=== PATIENT | female | born 1995 | race African-American/Black ===

== ENCOUNTER 2020-09-28 17:04 | Emergency (ER) | payer SELFPAY ==
--- NOTE | 2020-09-28 18:01 | EDM.PDOC ---
ED HPI GENERAL MEDICAL PROBLEM - General Chief Complaint: Lower Extremity Injury/Pain Stated Complaint: LEFT ANKLE SWOLLEN Time Seen by Provider: 09/28/20 17:14 Source of Information: Reports: Patient History Limitations: Reports: No Limitations - History of Present Illness INITIAL COMMENTS - FREE TEXT/NARRATIVE: The patient presents with left ankle pain. She was going up some steps early this morning and tripped and hurt her left ankle. She did not hit her head or hurt her neck. She has no chest pain or shortness of breath. She has left ankle pain. She can put a little weight on it. Onset: Sudden Duration: Hour(s): (early this morning) Location: Reports: Lower Extremity, Left (ankle) Quality: Reports: Sharp Severity: Moderate Improves with: Reports: Immobilization Worsens with: Reports: Movement Associated Symptoms: Reports: No Other Symptoms Left Pain Score (Numeric/FACES): 7 - Related Data Allergies Allergy/AdvReac Type Severity Reaction Status Date / Time No Known Allergies Allergy Verified 09/28/20 17:14 Home Meds: Home Meds Hydrocodone/Acetaminophen [Hydrocodone-Acetamin 5-325 mg] 1 - 2 each PO Q6HR PRN #10 tablet 09/28/20 [Rx] Past Medical History Respiratory History: Reports: Bronchitis, Recurrent Psychiatric History: Reports: Depression Hematologic History: Reports: Anemia - Infectious Disease History Infectious Disease History: Reports: Chicken Pox, Novel Coronavirus Social & Family History - Tobacco Use Tobacco Use Status *Q: Current Every Day Tobacco User Years of Tobacco use: 12 Packs/Tins Daily: 0.5 - Caffeine Use Caffeine Use: Reports: Energy Drinks, Tea - Recreational Drug Use Recreational Drug Use: Yes Recreational Drug Type: Reports: Marijuana/Hashish Review of Systems - Review of Systems Review Of Systems: See Below Constitutional: Reports: No Symptoms Eyes: Reports: No Symptoms Ears: Reports: No Symptoms Nose: Reports: No Symptoms Mouth/Throat: Reports: No Symptoms Respiratory: Reports: No Symptoms Cardiovascular: Reports: No Symptoms GI/Abdominal: Reports: No Symptoms Genitourinary: Reports: No Symptoms ED EXAM, GENERAL - Physical Exam Exam: See Below Exam Limited By: No Limitations General Appearance: Alert, No Apparent Distress Ears: Normal External Exam Nose: Normal Inspection Head: Atraumatic, Normocephalic Neck: Normal Inspection Respiratory/Chest: No Respiratory Distress Extremities: Other (Pain upon palpation with edema to the left ankle. Good sensation and capillary refill distally.) Course - Vital Signs Last Recorded V/S: Last Vital Signs Temp 98.7 F 09/28/20 17:15 Pulse 70 09/28/20 17:15 Resp 16 09/28/20 17:15 BP 129/76 09/28/20 17:15 Pulse Ox 97 09/28/20 17:15 - Orders/Labs/Meds Orders: Active Orders 24 hr Category Date Time Status Ankle Min 3V Lt [CR] Stat Exams 09/28/20 17:32 Ordered - Re-Assessments/Exams Free Text/Narrative Re-Assessment/Exam: 09/28/20 18:02 I have ordered an x-ray of her ankle. 09/28/20 18:25 The x-ray of her ankle looks good. I will give her a walking boot and have her follow up with Dr Leo is she is not better in about a week. Departure - Departure Time of Disposition: 18:25 Disposition: Home, Self-Care 01 Condition: Good Clinical Impression: Left ankle sprain Qualifiers: Encounter type: initial encounter Involved ligament of ankle: unspecified ligament Qualified Code(s): S93.402A - Sprain of unspecified ligament of left ankle, initial encounter - Discharge Information *PRESCRIPTION DRUG MONITORING PROGRAM REVIEWED*: Not Applicable *COPY OF PRESCRIPTION DRUG MONITORING REPORT IN PATIENT DAMIAN: Not Applicable Prescriptions: Hydrocodone/Acetaminophen [Hydrocodone-Acetamin 5-325 mg] 1 - 2 each PO Q6HR PRN #10 tablet PRN Reason: Pain Referrals: PCP,None [Primary Care Provider] - Eleanor Leo MD [Physician] - 1 Week Forms: ED Department Discharge Additional Instructions: Ice your ankle for 15 minutes 3 times per day for a couple days. Try to elevate your ankle as much as you can for 2 days. Take tylenol or motrin as needed for pain. If that does not help, try the hydrocodone. Wear the walking boot for comfort and use the crutches as needed. Follow up with Dr Leo within a week if you are not better. Sepsis Event Note (ED) - Evaluation Sepsis Screening Result: No Definite Risk - Focused Exam Vital Signs: Vital Signs Temp Pulse Resp BP Pulse Ox 09/28/20 17:15 98.7 F 70 16 129/76 97 - My Orders Last 24 Hours: My Active Orders 09/28/20 17:32 Ankle Min 3V Lt [CR] Stat - Assessment/Plan Last 24 Hours: My Active Orders 09/28/20 17:32 Ankle Min 3V Lt [CR] Stat
--- NOTE | 2020-09-28 19:18 | CR ---
Left ankle: 4 views of the left ankle were obtained. Comparison: No prior study. No calcaneal spurs are seen. Ankle mortise is symmetric. Mild soft tissue swelling is noted. No acute fracture, dislocation or other bony abnormality is appreciated. Impression: 1. Soft tissue swelling. 2. No acute osseous abnormality is appreciated on left ankle exam. Diagnostic code #2
== END 2020-09-28 18:12 | disposition home or self-care (01) ==
LOC: JD.ED 17:04 → EDSEX 17:04 → JD.ED 18:12
DX: S93.402A Sprain of unspecified ligament of left ankle, initial encounter (principal); Z72.0 Tobacco use; W10.9XXA Fall (on) (from) unspecified stairs and steps, initial encounter
CPT/HCPCS: 73610-26-LT; 73610-LT; 99283; 99283-25

== ENCOUNTER 2020-10-14 08:05 | Emergency (ER) | payer SELFPAY ==
[2020-10-14] MEDS ORDERED: Codeine/Promethazine 10-6.25 MG/5 ML Syrup 5 ML UD Cup PO ONE (08:28)
--- NOTE | 2020-10-14 08:35 | EDM.PDOC ---
ED HPI GENERAL MEDICAL PROBLEM - General Chief Complaint: Respiratory Problem Stated Complaint: SINUS/RESPIRATORY ISSUES Time Seen by Provider: 10/14/20 08:21 Source of Information: Reports: Patient History Limitations: Reports: No Limitations - History of Present Illness INITIAL COMMENTS - FREE TEXT/NARRATIVE: The patient presents with congestion and sinus pressure. This has been going on for a couple of days. She has no fever or chills. She has a headache. She cannot even blow her nose she is so congestion. She has a cough. She has no chest pain or shortness of breath. She has no medical problems. Onset: Gradual Duration: Day(s): Location: Reports: Head, Face Quality: Reports: Ache Severity: Moderate Improves with: Reports: None Worsens with: Reports: None Associated Symptoms: Reports: Cough, Headaches. Denies: Chest Pain, Fever/Chills, Nausea/Vomiting, Shortness of Breath Headache Pain Score (Numeric/FACES): 8 - Related Data Allergies Allergy/AdvReac Type Severity Reaction Status Date / Time No Known Allergies Allergy Verified 10/14/20 08:12 Home Meds: Home Meds Amoxicillin 875 mg PO BID #20 tab 10/14/20 [Rx] Codeine/Promethazine [Phenergan with Codeine] 5 - 10 ml PO Q6HR PRN #300 ml 10/14/20 [Rx] Loratadine/Pseudoephedrine [Claritin-D 24 Hour Tablet] 1 each PO DAILY #14 tab.er.24h 10/14/20 [Rx] Past Medical History Respiratory History: Reports: Bronchitis, Recurrent Psychiatric History: Reports: Depression Hematologic History: Reports: Anemia - Infectious Disease History Infectious Disease History: Reports: Chicken Pox, Novel Coronavirus Social & Family History - Tobacco Use Tobacco Use Status *Q: Never Tobacco User Second Hand Smoke Exposure: No - Caffeine Use Caffeine Use: Reports: None - Recreational Drug Use Recreational Drug Use: No ED ROS GENERAL - Review of Systems Review Of Systems: See Below Constitutional: Reports: No Symptoms HEENT: Reports: Sinus Problem Respiratory: Reports: Cough. Denies: Shortness of Breath Cardiovascular: Reports: No Symptoms Endocrine: Reports: No Symptoms GI/Abdominal: Reports: No Symptoms : Reports: No Symptoms Musculoskeletal: Reports: No Symptoms ED EXAM, GENERAL - Physical Exam Exam: See Below Exam Limited By: No Limitations General Appearance: Alert, No Apparent Distress Ears: Normal External Exam, Normal Canal, Normal TMs Nose: Normal Inspection Throat/Mouth: Normal Inspection Head: Atraumatic, Normocephalic, Other (Tenderness to the frontal and maxillary sinus with palpation) Neck: Normal Inspection, Supple, Non-Tender Respiratory/Chest: No Respiratory Distress, Lungs Clear, Normal Breath Sounds Cardiovascular: Regular Rate, Rhythm, No Edema, No Murmur GI/Abdominal: Soft, Non-Tender, No Organomegaly, No Mass Back Exam: Normal Inspection Extremities: Normal Inspection Neurological: Alert, Oriented, No Motor/Sensory Deficits Course - Vital Signs Last Recorded V/S: Last Vital Signs Temp 97.1 F 10/14/20 08:12 Pulse 62 10/14/20 08:12 Resp 13 10/14/20 08:12 BP 136/81 10/14/20 08:12 Pulse Ox 100 10/14/20 08:12 - Orders/Labs/Meds Orders: Active Orders 24 hr Category Date Time Status Codeine/Promethazine [Phenergan with Codeine] Med 10/14/20 08:28 Once 10 ml PO ONETIME ONE - Re-Assessments/Exams Free Text/Narrative Re-Assessment/Exam: 10/14/20 08:32 I ordered some phenergan with codeine here and I will give her a prescription for amoxicillin, claritin D 24 hour and more phenergan with codeine. Departure - Departure Time of Disposition: 08:35 Disposition: Home, Self-Care 01 Condition: Good Clinical Impression: Sinusitis Qualifiers: Sinusitis location: frontal Chronicity: acute Recurrence: non-recurrent Qualified Code(s): J01.10 - Acute frontal sinusitis, unspecified - Discharge Information Prescriptions: Amoxicillin 875 mg PO BID #20 tab Loratadine/Pseudoephedrine [Claritin-D 24 Hour Tablet] 1 each PO DAILY #14 tab.er.24h Codeine/Promethazine [Phenergan with Codeine] 5 - 10 ml PO Q6HR PRN #300 ml PRN Reason: Cough Referrals: PCP,None [Primary Care Provider] - Zoraida Hamilton NP [Nurse Practitioner] - 1 Week Additional Instructions: Take the amoxicillin 2 times per day for 10 days. Take the claritin D 24 hours daily for 2 weeks. Take the phenergan with codeine every 6 hours as needed for cough or pain. 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 Follow up with Zoraida Hamilton in our clinic next week. Please return if you are worse. Sepsis Event Note (ED) - Evaluation Sepsis Screening Result: No Definite Risk - Focused Exam Vital Signs: Vital Signs Temp Pulse Resp BP Pulse Ox 10/14/20 08:12 97.1 F 62 13 136/81 100 - My Orders Last 24 Hours: My Active Orders 10/14/20 08:28 Codeine/Promethazine [Phenergan with Codeine] 10 ml PO ONETIME ONE - Assessment/Plan Last 24 Hours: My Active Orders 10/14/20 08:28 Codeine/Promethazine [Phenergan with Codeine] 10 ml PO ONETIME ONE
== END 2020-10-14 08:52 | disposition home or self-care (01) ==
LOC: JD.ED 08:05
DX: J01.10 Acute frontal sinusitis, unspecified (principal)
CPT/HCPCS: 99283; A9270

== ENCOUNTER 2021-01-30 19:22 | Emergency (ER) | payer SELFPAY ==
--- NOTE | 2021-01-30 20:30 | EDM.PDOC ---
ED HPI GENERAL MEDICAL PROBLEM - General Chief Complaint: Respiratory Problem Stated Complaint: WANTS TO BE TESTED FOR COVID-VOMITING MUCUS Time Seen by Provider: 01/30/21 19:58 Source of Information: Reports: Patient, RN Notes Reviewed History Limitations: Reports: No Limitations - History of Present Illness INITIAL COMMENTS - FREE TEXT/NARRATIVE: Patient is a 25-year-old female presenting to the emergency department with complaints of cough, congestion, body aches, and headache. She is requesting to be tested for Covid. She is had no known contacts of Covid. Denies any nausea or diarrhea but states that she has vomited mucus a couple times after having a coughing fit. Denies any significant shortness of breath. She has no chronic medical conditions. She did not receive the Covid vaccinations. Generalized Pain Score (Numeric/FACES): 5 - Related Data Allergies Allergy/AdvReac Type Severity Reaction Status Date / Time No Known Allergies Allergy Verified 10/14/20 08:12 Home Meds: Home Meds . [No Known Home Meds] 01/30/21 [History] Past Medical History - Past Health History Medical/Surgical History: Denies Medical/Surgical History Respiratory History: Reports: Bronchitis, Recurrent Psychiatric History: Reports: Depression Hematologic History: Reports: Anemia - Infectious Disease History Infectious Disease History: Reports: Chicken Pox, Novel Coronavirus Social & Family History - Tobacco Use Tobacco Use Status *Q: Current Every Day Tobacco User Years of Tobacco use: 10 Packs/Tins Daily: 0.5 - Caffeine Use Caffeine Use: Reports: Tea - Recreational Drug Use Recreational Drug Use: Yes Drug Use in Last 12 Months: Yes Recreational Drug Type: Reports: Marijuana/Hashish Recreational Drug Use Frequency: Daily ED ROS GENERAL - Review of Systems Review Of Systems: See Below Constitutional: Reports: Fatigue. Denies: Fever HEENT: Reports: Rhinitis Respiratory: Reports: Cough. Denies: Shortness of Breath Cardiovascular: Reports: No Symptoms Endocrine: Reports: No Symptoms GI/Abdominal: Reports: Vomiting. Denies: Nausea : Reports: No Symptoms Musculoskeletal: Reports: Other (Generalized body aches) Skin: Reports: No Symptoms Neurological: Reports: Headache Psychiatric: Reports: No Symptoms Hematologic/Lymphatic: Reports: No Symptoms Immunologic: Reports: No Symptoms ED EXAM, GENERAL - Physical Exam Exam: See Below Exam Limited By: No Limitations General Appearance: Alert, WD/WN, No Apparent Distress Nose: Nasal Drainage, Clear Rhinorrhea Respiratory/Chest: No Respiratory Distress, Lungs Clear, Normal Breath Sounds, No Accessory Muscle Use, Chest Non-Tender Cardiovascular: Normal Peripheral Pulses, Regular Rate, Rhythm, No Edema, No Gallop, No JVD, No Murmur, No Rub GI/Abdominal: Normal Bowel Sounds, Soft, Non-Tender, No Organomegaly, No Distention, No Abnormal Bruit, No Mass Neurological: Alert, Oriented, CN II-XII Intact, Normal Cognition, Normal Gait, Normal Reflexes, No Motor/Sensory Deficits Psychiatric: Normal Affect, Normal Mood Skin Exam: Warm, Dry, Intact, Normal Color, No Rash Course - Vital Signs Last Recorded V/S: Last Vital Signs Temp 97.7 F 01/30/21 20:00 Pulse 50 L 01/30/21 20:00 Resp 20 01/30/21 20:00 BP 154/90 H 01/30/21 20:00 Pulse Ox 100 01/30/21 20:00 - Orders/Labs/Meds Orders: Active Orders 24 hr Category Date Time Status Chest 1V Frontal [CR] Stat Exams 01/30/21 20:29 Ordered Labs: Laboratory Tests 01/30/21 Range/Units 20:30 SARS-CoV-2 RNA ([facility]) Negative (NEGATIVE) - Re-Assessments/Exams Free Text/Narrative Re-Assessment/Exam: Patient is a 25-year-old female presenting to the emergency department with complaints of left, congestion, headache, and body aches. Symptoms began approximately 5 days ago. Denies any significant shortness of breath. She has no underlying medical conditions. Exam is overall unremarkable. Lung sounds are clear. She does have notable sinus congestion. I have ordered Covid test and chest x-ray. 01/30/21 21:30 Covid test was negative. Chest x-ray shows no evidence of pneumonia. Patient is suffering from a viral respiratory infection. Recommend symptomatic treatment. Discharge instructions as documented. Departure - Departure Time of Disposition: 21:30 Disposition: Home, Self-Care 01 Condition: Good Clinical Impression: Viral respiratory infection - Discharge Information *PRESCRIPTION DRUG MONITORING PROGRAM REVIEWED*: No *COPY OF PRESCRIPTION DRUG MONITORING REPORT IN PATIENT DAMIAN: No Instructions: Viral Illness, Adult Referrals: PCP,None [Primary Care Provider] - Forms: ED Department Discharge Additional Instructions: You were seen in the emergency department today for sinus congestion, cough, headaches, and body aches. Chest x-ray was completed and found to be normal. You were tested for Covid and it is negative. You are suffering from a viral respiratory infection. Recommend [id number] Flonase nasal spray as needed for congestion as well as intermittent Tylenol and ibuprofen for discomfort. If you should experience any new or worsening symptoms, please do not hesitate to return to the emergency department for reevaluation. Sepsis Event Note (ED) - Evaluation Sepsis Screening Result: No Definite Risk - Focused Exam Vital Signs: Vital Signs Temp Pulse Resp BP Pulse Ox 01/30/21 20:00 97.7 F 50 L 20 154/90 H 100 - My Orders Last 24 Hours: My Active Orders 01/30/21 20:29 Chest 1V Frontal [CR] Stat - Assessment/Plan Last 24 Hours: My Active Orders 01/30/21 20:29 Chest 1V Frontal [CR] Stat
--- NOTE | 2021-01-31 08:37 | CR ---
Chest: Portable view of the chest was obtained. Comparison: No prior chest imaging is available. Heart size and mediastinum are within normal limits. Lungs are clear with no acute parenchymal change. No acute osseous abnormality is appreciated. Impression: 1. Nothing acute is appreciated on portable chest x-ray. Diagnostic code #1
== END 2021-01-30 21:40 | disposition home or self-care (01) ==
LOC: JD.ED 19:22
DX: J98.8 Other specified respiratory disorders (principal); Z72.0 Tobacco use; Z20.822 Contact with and (suspected) exposure to COVID-19
CPT/HCPCS: 71045; 71045-26; 99283; 99284-25; U0002

== ENCOUNTER 2021-02-18 20:18 | Emergency (ER) | payer OTHER ==
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
[2021-02-18] MEDS ORDERED: Ibuprofen 800 MG Tab PO ONE (23:24)
--- NOTE | 2021-02-19 08:23 | CR ---
Left shoulder: 3 views of the left shoulder were obtained. Comparison: No prior shoulder study is available. Acromioclavicular joint and glenohumeral joint appear within normal limits. No acute fracture, dislocation or other bony abnormality is appreciated. No abnormal soft tissue calcifications are seen. Impression: 1. Nothing acute is seen on 3 view left shoulder study. Diagnostic code #1
--- NOTE | 2021-02-19 08:24 | CT ---
CT cervical spine Technique: Multiple axial sections were obtained from above C1 inferiorly through the T5 level. Reconstructed coronal and sagittal images were obtained. Comparison: No prior cervical spine imaging is available. Findings: Mild artifact is noted at the cervicothoracic junction compatible with body habitus. Other vertebral body heights and disc spaces are maintained. No bony central or bony neural foraminal stenosis is seen. No discrete fracture or subluxation is appreciated. Impression: 1. Slightly limited visualization at the cervicothoracic junction due to body habitus. 2. Nothing acute is definitely appreciated on CT study of the cervical spine. Diagnostic code #1 I agree with preliminary report from [facility], finalized on 02/19/21, 12:50 AM CDT, code 1
--- NOTE | 2021-02-19 08:39 | CT ---
Head CT Technique: Multiple axial sections through the brain were obtained. Intravenous contrast was not utilized. Reconstructed coronal and sagittal images were obtained. Comparison: No prior intracranial imaging is available. Findings: Ventricles along with basal cisterns and sulci over the convexities are within normal limits for the patient's age. No abnormal parenchymal densities are seen. No evidence of intracranial hemorrhage is seen. No midline shift or mass-effect is seen. Mild mucosal thickening is seen within both maxillary sinuses. Minimal mucosal thickening is seen within the ethmoid sinuses. Visualized mastoid sinuses are clear. No acute calvarial finding is seen. Impression: 1. Minimal sinus findings which are likely due to minimal chronic sinusitis. 2. No acute intracranial abnormality is appreciated. Diagnostic code #2 I agree with preliminary report from [facility], finalized on 02/18/21, 10:33 PM CDT, code 1
== END 2021-02-19 00:03 | disposition home or self-care (01) ==
LOC: JD.ED 20:18
DX: S71.112A Laceration without foreign body, left thigh, initial encounter (principal); S31.821A Laceration without foreign body of left buttock, initial encounter; S00.03XA Contusion of scalp, initial encounter; E66.9 Obesity, unspecified; Z68.30 Body mass index [BMI] 30.0-30.9, adult; Z72.0 Tobacco use; V49.10XA Passenger injured in collision with unspecified motor vehicles in nontraffic accident, initial encounter; Y92.410 Unspecified street and highway as the place of occurrence of the external cause
CPT/HCPCS: 70450; 72125; 73030; 99284; A9270; 99283

== ENCOUNTER 2021-03-30 15:24 | Emergency (ER) | payer SELFPAY ==
--- NOTE | 2021-03-30 17:09 | EDM.PDOC ---
ED HPI GENERAL MEDICAL PROBLEM - General Chief Complaint: Respiratory Problem Stated Complaint: CHEST PAIN X 2 DAYS Time Seen by Provider: 03/30/21 15:57 Source of Information: Reports: Patient, RN Notes Reviewed History Limitations: Reports: No Limitations - History of Present Illness INITIAL COMMENTS - FREE TEXT/NARRATIVE: Patient is a 26-year-old female presenting to the emergency department with complaints of cough, sinus congestion, and chest tightness for the last 3 days. Patient reports that her cough is sometimes dry and sometimes productive. Complains of burning in her chest with taking a deep breath. She is had no fever, chills, nausea, vomiting, or diarrhea. She did not receive Covid vaccinations. Chest Pain Score (Numeric/FACES): 5 - Related Data Allergies Allergy/AdvReac Type Severity Reaction Status Date / Time No Known Allergies Allergy Verified 03/30/21 15:50 Home Meds: Home Meds methylPREDNISolone [Medrol Dose Pack] 4 mg PO ASDIRECTED #1 dospk 03/30/21 [Rx] Past Medical History - Past Health History Medical/Surgical History: Denies Medical/Surgical History Respiratory History: Reports: Bronchitis, Recurrent Psychiatric History: Reports: Bipolar, Depression, PTSD Endocrine/Metabolic History: Reports: Obesity/BMI 30+ Hematologic History: Reports: Anemia - Infectious Disease History Infectious Disease History: Reports: Chicken Pox Social & Family History - Tobacco Use Tobacco Use Status *Q: Current Every Day Tobacco User Years of Tobacco use: 9 Packs/Tins Daily: 1 - Caffeine Use Caffeine Use: Reports: None - Recreational Drug Use Recreational Drug Use: Yes Recreational Drug Type: Reports: Marijuana/Hashish - Living Situation & Occupation Living situation: Reports: Single Occupation: Employed (Works at [employer]) ED ROS GENERAL - Review of Systems Review Of Systems: See Below Constitutional: Reports: No Symptoms, Weight Gain. Denies: Fever, Chills HEENT: Reports: Sinus Problem (Congestion) Respiratory: Reports: Pleuritic Chest Pain, Cough. Denies: Shortness of Breath, Wheezing Cardiovascular: Reports: No Symptoms Endocrine: Reports: No Symptoms GI/Abdominal: Reports: No Symptoms : Reports: No Symptoms Musculoskeletal: Reports: No Symptoms Skin: Reports: No Symptoms Neurological: Reports: No Symptoms Psychiatric: Reports: No Symptoms Hematologic/Lymphatic: Reports: No Symptoms Immunologic: Reports: No Symptoms ED EXAM, GENERAL - Physical Exam Exam: See Below Exam Limited By: No Limitations General Appearance: Alert, WD/WN, No Apparent Distress Respiratory/Chest: No Respiratory Distress, Lungs Clear, Normal Breath Sounds, No Accessory Muscle Use, Chest Non-Tender Cardiovascular: Normal Peripheral Pulses, Regular Rate, Rhythm, No Edema, No Gallop, No JVD, No Murmur, No Rub Neurological: Alert, Oriented, CN II-XII Intact, Normal Cognition, Normal Gait, Normal Reflexes, No Motor/Sensory Deficits Psychiatric: Normal Affect, Normal Mood Skin Exam: Warm, Dry, Intact, Normal Color, No Rash Course - Vital Signs Last Recorded V/S: Last Vital Signs Temp 97.0 F 03/30/21 15:48 Pulse 85 03/30/21 15:48 Resp 20 03/30/21 15:48 BP 149/80 H 03/30/21 15:48 Pulse Ox 99 03/30/21 15:48 - Orders/Labs/Meds Orders: Active Orders 24 hr Category Date Time Status Chest 1V Frontal [CR] Stat Exams 03/30/21 16:10 Taken Labs: Laboratory Tests 03/30/21 Range/Units 15:55 SARS-CoV-2 RNA ([place]) Negative (NEGATIVE) - Re-Assessments/Exams Free Text/Narrative Re-Assessment/Exam: Patient is a 26-year-old female presenting to the emergency department with complaints of cough, sinus congestion, chest tightness for last 3 days. Exam is unremarkable. Lung sounds are clear. I ordered chest x-ray and Covid test. 03/30/21 17:10 Chest x-ray shows no acute abnormalities. Covid test is negative. We will discharge her home with a Medrol Dosepak for bronchitis. Also provide her a note for work. Departure - Departure Time of Disposition: 17:11 Disposition: Home, Self-Care 01 Condition: Good Clinical Impression: Viral respiratory infection - Discharge Information *PRESCRIPTION DRUG MONITORING PROGRAM REVIEWED*: No *COPY OF PRESCRIPTION DRUG MONITORING REPORT IN PATIENT DAMIAN: No Prescriptions: methylPREDNISolone [Medrol Dose Pack] 4 mg PO ASDIRECTED #1 dospk Instructions: Acute Bronchitis, Adult, [id number] Referrals: PCP,None [Primary Care Provider] - Forms: ED Department Discharge, ED Return to Work/School Form Additional Instructions: You were seen in the emergency department today for evaluation of cough, chest tightness, and sinus congestion. Work-up included chest x-ray and Covid test. Results of your work-up on to be normal. Do not Covid and he do not have pneumonia. You been started on Medrol Dosepak for treatment of bronchitis. Take this medication as prescribed. If you should experience any new or w orsening symptoms, please not hesitate to return to the emergency department for reevaluation. Sepsis Event Note (ED) - Focused Exam Vital Signs: Vital Signs Temp Pulse Resp BP Pulse Ox 03/30/21 15:48 97.0 F 85 20 149/80 H 99 - My Orders Last 24 Hours: My Active Orders 03/30/21 16:10 Chest 1V Frontal [CR] Stat - Assessment/Plan Last 24 Hours: My Active Orders 03/30/21 16:10 Chest 1V Frontal [CR] Stat
--- NOTE | 2021-03-31 07:21 | CR ---
Chest: Portable view of the chest was obtained. Comparison: Prior chest x-ray of 01/30/21. Heart size and mediastinum are within normal limits. Lungs are clear with no acute parenchymal change. Bony structures show nothing acute. Impression: 1. Nothing acute is seen on portable chest x-ray. 2. No change is seen from previous chest x-ray. Diagnostic code #1
== END 2021-03-30 17:35 | disposition home or self-care (01) ==
LOC: JD.ED 15:24
DX: J98.9 Respiratory disorder, unspecified (principal); E66.9 Obesity, unspecified; Z68.41 Body mass index [BMI] 40.0-44.9, adult; Z72.0 Tobacco use; Z20.822 Contact with and (suspected) exposure to COVID-19
CPT/HCPCS: 71045; 71045-26; 99284-25; U0002

== ENCOUNTER 2021-09-17 14:30 | Emergency (ER) | payer SELFPAY ==
[2021-09-17] MEDS ORDERED: Acetaminophen/oxyCODONE 325-5 MG Tab PO ONE (15:47)
[2021-09-17] MEDS ORDERED: Ondansetron 4 MG Tab.DIS PO ONE (15:48)
== END 2021-09-17 16:51 | disposition home or self-care (01) ==
LOC: JD.ED 14:30
DX: S30.0XXA Contusion of lower back and pelvis, initial encounter (principal); E66.9 Obesity, unspecified; Z68.41 Body mass index [BMI] 40.0-44.9, adult; W01.0XXA Fall on same level from slipping, tripping and stumbling without subsequent striking against object, initial encounter
CPT/HCPCS: 72131; 99283; A9270; 99284

== ENCOUNTER 2021-10-08 13:35 | Emergency (ER) | payer SELFPAY ==
[2021-10-08] MEDS ORDERED: Ketorolac 60 MG/2 ML SDV IM ONE (14:07)
== END 2021-10-08 15:06 | disposition home or self-care (01) ==
LOC: JD.ED 13:35
DX: M54.6 Pain in thoracic spine (principal); E66.9 Obesity, unspecified; Z68.41 Body mass index [BMI] 40.0-44.9, adult
CPT/HCPCS: 72072; 96372; 99283; J1885; 99284

== ENCOUNTER 2022-03-06 12:58 | Emergency (ER) | payer SELFPAY ==
[2022-03-06] MEDS ORDERED: Sodium Chloride 0.9% 10 ML Syringe FLUSH PRN (13:40)
[2022-03-06] MEDS: Ondansetron 4 MG/2 ML SDV IVPUSH ONE (14:07)
[2022-03-06] MEDS: Sodium Chloride 0.9% 1,000 ML IV STA (14:07)
[2022-03-06] MEDS: HYDROmorphone 1 MG/ML Syringe IVPUSH ONE (14:08)
[2022-03-06] MEDS: Sodium Chloride 0.9% 10 ML Syringe FLUSH PRN (14:54)
[2022-03-06] MEDS: Iopamidol 612 MG/ML 50 ML SDV IVPUSH ONE (14:54)
[2022-03-06] MEDS: Iopamidol 612 MG/ML 100 ML Bottle IVPUSH ONE (14:54)
[2022-03-06] MEDS: Pantoprazole 40 MG Vial IVPUSH ONE (16:30)
[2022-03-06] MEDS: Pantoprazole 40 MG Vial ONE (16:31)
== END 2022-03-06 17:08 | disposition home or self-care (01) ==
LOC: JD.ED 12:58
DX: K59.01 Slow transit constipation (principal); K25.0 Acute gastric ulcer with hemorrhage; E66.9 Obesity, unspecified; Z68.42 Body mass index [BMI] 45.0-49.9, adult; Z79.899 Other long term (current) drug therapy
CPT/HCPCS: 36415; 74177; 80053; 81001; 83690; 84703; 85025; 96361; 96374; 96375; 99284; C9113; J1170; J2405; J3490; J7030; Q9967

== ENCOUNTER 2022-05-28 13:57 | Emergency (ER) | payer SELFPAY | END 2022-05-28 16:19 | disposition home or self-care (01) | LOC: JD.ED 13:57 | DX: S06.0X0A Concussion without loss of consciousness, initial encounter (principal); E66.9 Obesity, unspecified; Z68.42 Body mass index [BMI] 45.0-49.9, adult; Z72.0 Tobacco use; Y04.0XXA Assault by unarmed brawl or fight, initial encounter; Y92.009 Unspecified place in unspecified non-institutional (private) residence as the place of occurrence of the external cause | CPT/HCPCS: 99283 ==

== ENCOUNTER 2022-08-13 21:15 | Emergency (ER) | payer OTHER ==
[2022-08-14] MEDS ORDERED: Acetaminophen/HYDROcodone 325-5 MG Tab PO ONE (00:01)
== END 2022-08-14 02:03 | disposition home or self-care (01) ==
LOC: JD.ED 21:15
DX: S03.2XXA Dislocation of tooth, initial encounter (principal); E66.9 Obesity, unspecified; Z68.42 Body mass index [BMI] 45.0-49.9, adult; W00.0XXA Fall on same level due to ice and snow, initial encounter
CPT/HCPCS: 70450; 70486; 99283; A9270

== ENCOUNTER 2022-12-22 06:10 | Emergency (ER) | payer SELFPAY ==
[2022-12-22] MEDS ORDERED: predniSONE 20 MG Tab PO STA (07:13)
== END 2022-12-22 07:50 | disposition home or self-care (01) ==
LOC: JD.ED 06:10
DX: L50.0 Allergic urticaria (principal); F17.290 Nicotine dependence, other tobacco product, uncomplicated; E66.9 Obesity, unspecified; Z91.038 Other insect allergy status; Z68.45 Body mass index [BMI] 70 or greater, adult
CPT/HCPCS: 99282; J7512; 99284

== ENCOUNTER 2023-05-29 19:56 | Emergency (ER) | payer MEDICAID ==
[2023-05-29 21:17] LABS: INFLUENZA A NAA NEGATIVE (NEGATIVE); RESPIRATORY SYNCYTIAL VIR NAA NEGATIVE (NEGATIVE)
[2023-05-29 21:23] LABS: CORONAVIRUS COVID-19 NAA POSITIVE (NEGATIVE)
[2023-05-29] MEDS ORDERED: Ibuprofen 600 MG Tab PO ONE (21:29)
[2023-05-29] MEDS ORDERED: Ondansetron 4 MG Tab.DIS PO ONE (21:30)
== END 2023-05-29 21:45 | disposition home or self-care (01) ==
LOC: JD.ED 19:56
DX: U07.1 COVID-19 (principal); E66.9 Obesity, unspecified; Z68.41 Body mass index [BMI] 40.0-44.9, adult; Z87.891 Personal history of nicotine dependence; Z91.038 Other insect allergy status; Z79.899 Other long term (current) drug therapy
CPT/HCPCS: 0241U; 99284; A9270

== ENCOUNTER 2024-11-06 01:35 | Emergency (ER) | payer MEDICAID ==
[2024-11-06] MEDS ORDERED: Bacitracin Oint 15 GM Tube TOP SCH (02:00)
[2024-11-06] MEDS: Diphtheria,Pertussis(Acell),Tetanus Vaccine 0.5 ML Syringe IM ONE (02:11)
== END 2024-11-06 02:20 ==
LOC: JD.ED 01:35
DX: Z02.89 Encounter for other administrative examinations (principal); Z91.038 Other insect allergy status; Z79.899 Other long term (current) drug therapy; E66.9 Obesity, unspecified; Z68.36 Body mass index [BMI] 36.0-36.9, adult
CPT/HCPCS: 90471; 90715; 99284; A9270; 99282

== ENCOUNTER 2024-11-12 23:05 | Emergency (ER) | payer MEDICAID ==
[2024-11-13] MEDS: Loperamide 2 MG Cap PO STA (00:14)
[2024-11-13] MEDS: Ondansetron 4 MG Tab.DIS PO ONE (00:14)
== END 2024-11-13 00:30 | disposition home or self-care (01) ==
LOC: JD.ED 23:05
DX: R11.2 Nausea with vomiting, unspecified (principal); R19.7 Diarrhea, unspecified; K04.7 Periapical abscess without sinus; E66.9 Obesity, unspecified; Z91.09 Other allergy status, other than to drugs and biological substances; Z79.899 Other long term (current) drug therapy; Z68.39 Body mass index [BMI] 39.0-39.9, adult; Z68.41 Body mass index [BMI] 40.0-44.9, adult
CPT/HCPCS: 99283; A9270

== ENCOUNTER 2024-12-06 23:33 | Emergency (ER) | payer MEDICAID, OTHER ==
[2024-12-07] MEDS: Acetaminophen 325 MG Tab PO ONE (01:10)
[2024-12-07] MEDS: Cyclobenzaprine 10 MG Tab PO ONE (02:25)
== END 2024-12-07 02:16 | disposition home or self-care (01) ==
LOC: JD.ED 23:33
DX: M54.2 Cervicalgia (principal); R51.9 Headache, unspecified; F17.210 Nicotine dependence, cigarettes, uncomplicated; Z91.038 Other insect allergy status; Z79.899 Other long term (current) drug therapy; V49.49XA Driver injured in collision with other motor vehicles in traffic accident, initial encounter; Y93.89 Activity, other specified
CPT/HCPCS: 70450; 72125; 99284; A9270

== ENCOUNTER 2025-02-09 21:49 | Emergency (ER) | payer MEDICAID, OTHER ==
[2025-02-09] MEDS ORDERED: Calamine/Zinc Oxide Lotion 177 ML Bottle TOP PRN (22:11)
== END 2025-02-09 22:25 | disposition home or self-care (01) ==
LOC: JD.ED 21:49
DX: S61.012A Laceration without foreign body of left thumb without damage to nail, initial encounter (principal); E66.9 Obesity, unspecified; Z91.09 Other allergy status, other than to drugs and biological substances; Z79.899 Other long term (current) drug therapy; Z68.39 Body mass index [BMI] 39.0-39.9, adult; W26.0XXA Contact with knife, initial encounter
CPT/HCPCS: 12001; 99282; A9270; Q0163; 99283

== ENCOUNTER 2025-04-26 11:15 | Emergency (ER) | payer OTHER, MEDICAID ==
[2025-04-26] MEDS ORDERED: Naloxone 0.4 MG/ML SDV IVPUSH PRN (11:40)
== END 2025-04-26 13:01 | disposition home or self-care (01) ==
LOC: JD.ED 11:15
DX: S81.011A Laceration without foreign body, right knee, initial encounter (principal); R51.9 Headache, unspecified; E66.9 Obesity, unspecified; F17.200 Nicotine dependence, unspecified, uncomplicated; Z91.048 Other nonmedicinal substance allergy status; Z86.16 Personal history of COVID-19; Z68.41 Body mass index [BMI] 40.0-44.9, adult; V47.3XXA Unspecified car occupant injured in collision with fixed or stationary object in nontraffic accident, initial encounter
CPT/HCPCS: 12001; 70450; 71045; 72125; 96372; 99284; J2003; J1171

== ENCOUNTER 2025-06-13 10:01 | Emergency (ER) | payer OTHER, MEDICAID ==
[2025-06-13] MEDS: Ketorolac 30 MG/ML SDV IVPUSH ONE (11:02)
== END 2025-06-13 12:54 | disposition home or self-care (01) ==
LOC: JD.ED 10:01
DX: M25.551 Pain in right hip (principal); M25.561 Pain in right knee; E66.9 Obesity, unspecified; Z79.899 Other long term (current) drug therapy; Z88.8 Allergy status to other drugs, medicaments and biological substances; Z86.16 Personal history of COVID-19; Z68.41 Body mass index [BMI] 40.0-44.9, adult; W00.0XXA Fall on same level due to ice and snow, initial encounter
CPT/HCPCS: 73502; 73562; 96374; 99284; A9270; J1885